=== PATIENT | female | born 1940 | race Caucasian/White ===

== ENCOUNTER → 2021-12-17 | Outpatient (CLI) | payer MEDICARE | LOC: RAD 13:00 → VAS 13:03 | DX: M79.605 Pain in left leg (principal) ==

== ENCOUNTER → 2022-09-17 | Outpatient (CLI) | payer MEDICARE | LOC: RAD 16:15 | DX: M51.27 Other intervertebral disc displacement, lumbosacral region (principal); M47.816 Spondylosis without myelopathy or radiculopathy, lumbar region ==